=== PATIENT | female | born 1995 | race Two or more races ===

== ENCOUNTER 2016-11-24 13:50 | Emergency (ER) | payer OTHER ==
[~2016-11-24] VITALS: Ht 152.4 cm; Wt 51.7 kg
[2016-11-24] MEDS ORDERED: Bacitracin Oint UD TOPIC ONE (14:30)
[2016-11-24] MEDS ORDERED: Lidocaine 1% MPF 10mg/ml 5ml INJ ONE (14:30)
[2016-11-24] MEDS ORDERED: IBUPROFEN600 MG ORAL (15:17)
[2016-11-24] MEDS ORDERED: NITROFURANTOIN100 M2 ORAL (15:17)
[2016-11-24] MEDS ORDERED: CEPHALEXIN500 MG ORAL (15:18)
[2016-11-24 15:32] VITALS: BP 127/74
[2016-11-24 15:33] VITALS: BP 121/76
--- NOTE | 2016-11-24 16:16 | Emergency Room Report ---
History of Present Illness General Chief Complaint: Laceration Source: Patient Present Illness HPI The patient is a 21-year-old female presenting for laceration of the left thumb. She states that this began this afternoon while opening a metal can. She noticed immediate pain and bleeding. Pain is now a 3/10 sharp sensation to the left thumb and does not radiate. She denies any numbness or tingling. Pain worse with movement. Last tetanus shot 5 years prior. She denies any other symptoms Allergies: Coded Allergies: No Known Allergies (Unverified , 11/24/16) Patient History Past Medical History: see triage record Pertinent Family History: none Last Menstrual Period: 10/24/16 Now: No Reviewed Nursing Documentation: PMH: Agreed, PSxH: Agreed Nursing Documentation-PMH Past Medical History: No Stated History Review of Systems All Other Systems: negative except mentioned in HPI Physical Exam Vital Signs Date Time Temp Pulse Resp B/P (MAP) Pulse Ox O2 Delivery O2 Flow Rate FiO2 11/24/16 13:53 98.1 73 15 121/76 98 Room Air Sp02 EP Interpretation: reviewed, normal General Appearance: no apparent distress, alert, GCS 15, non-toxic Head: normocephalic, atraumatic Eyes: bilateral eye normal inspection, bilateral eye PERRL Musculoskeletal: back normal, gait/station normal, normal range of motion, tender - TTP over the L palmar surface of thumb over laceration site Neurologic: alert, oriented x3, responsive, motor strength/tone normal, sensory intact, speech normal Psychiatric: judgement/insight normal, memory normal, mood/affect normal, no suicidal/homicidal ideation Skin: normal color, no rash, normal turgor, laceration - 3cm linear laceration to L thumb distal to IPJ Lymphatic: no adenopathy Procedures Splinting Splinting : Consent: Verbal Location: L thumb Pre-Made Type: metal Splint: metal finger Pre-Proc Neuro Vasc Exam: normal Post-Proc Neuro Vasc Exam: normal Patient Tolerated: Well Complications: None Laceration/Wound Repair Laceration/Wound Repair : Consent: Verbal Wound Location: upper extremity Wound's Depth, Shape: superficial, linear Wound Length (cm): 3 Wound Explored: clean Irrigated w/ Saline (ccs): 100 Betadine Prep?: Yes Anesthesia: 1% Lidocaine Volume Anesthetic (ccs): 5 Wound Debrided: minimal Wound Repaired With: sutures Suture Size/Type: 4:0, nylon Number of Sutures: 5 Layer Closure?: No Sterile Dressing Applied?: Yes Splint Applied?: Yes Type of Splint Applied: metal finger Sling Applied?: No Patient Tolerated: Well Complications: None Medical Decision Making PA Attestation Dr. Espino is my supervising physician. Patient management was discussed with my supervising physician Diagnostic Impression: Primary Impression: Laceration of finger Qualified Codes: S61.012A - Laceration without foreign body of left thumb without damage to nail, initial encounter ER Course The patient is a 21-year-old female presenting for laceration of the left thumb. Ddx considered include but not limited to fracture, tendon/ligament injury, avulsion, nerve damage Physical exam reveals a 3 cm linear laceration to the left thumb palmar surface distal to IP joint. Full active range of motion. Sensation intact. Cap refill less than 2 seconds The wound was irrigated with normal saline and cleaned with betadine. A 27g needle was used to administer 5mL of lidocaine w.o epi for digital block. 5 sutures were placed with 4-0 nylon. The wound was well approximated and the patient tolerated the procedure well. The wound was then cleaned and bacitracin was applied. A metal finger splint was applied The patient will continue to keep the wound clean and dry and will followup with PMD. Suture instructions provided. ER precautions are given Last Vital Signs Date Time Temp Pulse Resp B/P (MAP) Pulse Ox O2 Delivery O2 Flow Rate FiO2 11/24/16 15:33 98.1 15 121/76 98 Room Air 11/24/16 15:32 84 Status: improved Disposition: HOME, SELF-CARE Condition: Improved Scripts Cephalexin* (KEFLEX*) 500 Mg Capsule 500 MG ORAL EVERY 12 HOURS, #14 CAP 0 Refills Prov: TERZIAN,GILDA P.A. 11/24/16 Ibuprofen* (MOTRIN*) 600 Mg Tablet 600 MG ORAL Q8H Y for For Pain, #30 TAB 0 Refills Prov: TERZIAN,GILDA P.A. 11/24/16 Patient Instructions: Laceration Care, Adult Additional Instructions: I discussed my findings with the patient. All questions and concerns have been answered. Treatment and medication compliance have been addressed. I advised the patient that they need to follow up with PMD in 7-10 days for wound check and suture removal. If you are unable to see PMD, return to the ED in 7-10 days. Return to ED if pain remains or worsens, you notice discharge from the wound, the wound continues to bleed, the suture/s fall out, you notice a fever or chills, or for any reason. Patient is advised to keep the wound clean and dry. Patient verbalized understanding of discharge instructions. GILDA TROTTER Nov 24, 2016 16:16
== END 2016-11-24 15:34 | disposition home or self-care (01) ==
LOC: EMR 14:27
DX: S61.012A Laceration without foreign body of left thumb without damage to nail, initial encounter (principal); W26.8XXA Contact with other sharp object(s), not elsewhere classified, initial encounter; Y93.9 Activity, unspecified; Y99.9 Unspecified external cause status
CPT/HCPCS: 12002; 29130; 99284; Z7502

== ENCOUNTER 2016-12-05 14:32 | Emergency (ER) | payer OTHER ==
[~2016-12-05] VITALS: Ht 152.4 cm; Wt 51.7 kg
[~2016-12-05 14:32] MED LIST: CEPHALEXIN500 MG ORAL; IBUPROFEN600 MG ORAL; NITROFURANTOIN100 M2 ORAL
[2016-12-05 14:35] VITALS: BP 103/66
[2016-12-05 15:00] VITALS: BP 103/66
--- NOTE | 2016-12-05 15:45 | Emergency Room Report ---
History of Present Illness General Chief Complaint: Wound Recheck/Suture Removal Source: Patient Present Illness HPI The patient is a 21-year-old female presenting for left thumb suture removal. She was seen in this emergency Department 10 days prior for a laceration of the left thumb. She denies any complications. She denies any pain, redness, discharge, bleeding from the area. She denies any other symptoms Allergies: Coded Allergies: No Known Allergies (Unverified , 11/24/16) Patient History Past Medical History: see triage record Pertinent Family History: none Reviewed Nursing Documentation: PMH: Agreed, PSxH: Agreed Nursing Documentation-PMH Past Medical History: No Stated History Review of Systems All Other Systems: negative except mentioned in HPI Physical Exam Vital Signs Date Time Temp Pulse Resp B/P (MAP) Pulse Ox O2 Delivery O2 Flow Rate FiO2 12/05/16 14:35 98.2 75 20 103/66 98 Room Air Sp02 EP Interpretation: reviewed, normal General Appearance: no apparent distress, alert, GCS 15, non-toxic Head: normocephalic, atraumatic Eyes: bilateral eye normal inspection, bilateral eye PERRL Musculoskeletal: back normal, gait/station normal, normal range of motion Neurologic: alert, oriented x3, responsive, motor strength/tone normal, sensory intact, speech normal Psychiatric: judgement/insight normal, memory normal, mood/affect normal, no suicidal/homicidal ideation Skin: wd healing/no infection noted, other - sutures in place L thumb Medical Decision Making PA Attestation Dr. Wade is my supervising physician. Patient management was discussed with my supervising physician Diagnostic Impression: Primary Impression: Encounter for removal of sutures Additional Impression: Encounter for wound re-check ER Course The patient is a 21-year-old female presenting for left thumb suture removal. Differential diagnosis considered: Wound infection, nonhealing wound, cellulitis , abscess PE: NAD Left thumb nylon sutures in place. Well approximated. No bleeding. No edema. Sensation intact. Full active range of motion Suture removal: all sutures were removed without complication. No bleeding or discharge. Wound is well approximated. No surrounding erythema. Last Vital Signs Date Time Temp Pulse Resp B/P (MAP) Pulse Ox O2 Delivery O2 Flow Rate FiO2 12/05/16 15:00 98.2 76 20 103/66 98 Room Air Status: improved Disposition: HOME, SELF-CARE Condition: Improved Referrals: [facility],REFERRING (PCP) Patient Instructions: Suture Removal, Care After Additional Instructions: I discussed my findings with the patient. All questions and concerns have been answered. Treatment and medication compliance have been addressed. I advised the patient that they need to follow up with PMD in 3-5 days. Return to ED if symptoms worsen, new symptoms arise, or if needed for any reason. Patient verbalized understanding of discharge instructions. GILDA TROTTER Dec 05, 2016 15:45
== END 2016-12-05 15:00 | disposition home or self-care (01) ==
LOC: EMR 14:42
DX: S61.012D Laceration without foreign body of left thumb without damage to nail, subsequent encounter (principal); W45.8XXD Other foreign body or object entering through skin, subsequent encounter; Z48.02 Encounter for removal of sutures
CPT/HCPCS: 99281

== ENCOUNTER 2019-06-16 13:43 | Emergency (ER) | payer OTHER ==
[~2019-06-16] VITALS: Ht 172.7 cm; Wt 53.1 kg
[2019-06-16 14:20] LABS: APPEARANCE,URINE SLIGHTLY CLOUDY; BILIRUBIN, URINE NEGATIVE (NEGATIVE); COLOR,URINE YELLOW; GLUCOSE, URINE (UA) NEGATIVE (NEGATIVE); KETONES,URINE NEGATIVE (NEGATIVE); LEUKOCYTE ESTERASE ,URINE 1+ (NEGATIVE); NITRITE,URINE NEGATIVE (NEGATIVE); PH,URINE 6 (4.5-8.0); PROTEIN,URINE 2+ (NEGATIVE); UROBILINOGEN,URINE 1 MG/DL (0.0-1.0)
[2019-06-16 14:22] LABS: BASOPHILS % (AUTO) 0.7 % (0.0-2.0); EOSINOPHILS % (AUTO) 1.3 % (0.0-3.0); HEMATOCRIT 38.7 % (37.0-47.0); HEMOGLOBIN 13.5 G/DL (12.0-16.0); LYMPHOCYTES % (AUTO) 22.4 % (20.0-45.0); MEAN CORPUSCULAR VOLUME 85 FL (80-99); MONOCYTES % (AUTO) 5.1 % (1.0-10.0); NEUTROPHILS % (AUTO) 70.5 % (45.0-75.0); PLATELET COUNT 303 K/UL (150-450); RED BLOOD COUNT 4.54 M/UL (4.20-5.40); RED CELL DISTRIBUTION WIDTH 11.3 % (11.6-14.8); WHITE BLOOD COUNT 6.6 K/UL (4.8-10.8)
--- NOTE | 2019-06-16 14:27 | NUR ---
ED Nurse Note: A/OX4. CAME TO ED DUE TO LOWER ABD PAIN WITH VAGINAL BLEEDING X2DAYS. REPORTS 7WKS PREGANT HER FIRST . BREATHING NORMAL/EVEN/UNLABORED. SKIN WARM/DRY/INTACT. NAD NOTED.
[2019-06-16 14:46] LABS: ANION GAP 10 mmol/L (5-15); BLOOD UREA NITROGEN 9 mg/dL (7-18); CALCIUM 9.5 MG/DL (8.5-10.1); CARBON DIOXIDE 29 MMOL/L (21-32); CHLORIDE 103 MMOL/L (98-107); CREATININE 0.7 MG/DL (0.55-1.30); POTASSIUM 3.5 MMOL/L (3.5-5.1); SODIUM 141 MMOL/L (136-145)
[2019-06-16 14:50] LABS: ALANINE AMINOTRANSFERASE 25 U/L (12-78); ALBUMIN 3.9 G/DL (3.4-5.0); ALBUMIN/GLOBULIN RATIO 1.1 (1.0-2.7); ALKALINE PHOSPHATASE 78 U/L (46-116); ASPARTATE AMINO TRANSFERASE 23 U/L (15-37); BILIRUBIN,TOTAL 0.5 MG/DL (0.2-1.0)
--- NOTE | 2019-06-16 16:18 | Diagnostic Imaging Report ---
Indication: Pelvic pain and vaginal bleeding, positive test Technique: Transabdominal and transvaginal images Comparison: none Findings: Uterus measures 5.5 cm length by 3.5 cm AP. Endometrium measures 4 mm thick. No intrauterine demonstrated. No myometrial abnormality. The right ovary measures 3.1 cm in length. The left ovary measures 3.4 cm in length. The left ovary contains what is probably a small hemorrhagic corpus luteum. The right ovary contains some echogenic foci which may represent small calcifications. Normal ovarian blood flow demonstrated. No free cul-de-sac fluid. Impression: No intrauterine demonstrated. Differential considerations include very early , spontaneous , ectopic . Recommend correlation with clinical findings and correlation with serial beta-hCGs. Consider follow-up sonography as indicated Probable small left ovarian hemorrhagic corpus luteum
--- NOTE | 2019-06-16 16:30 | Emergency Room Report ---
History of Present Illness General Chief Complaint: Complications Present Illness HPI 24-year-old female who is G1, P0 here reporting that she is 7 weeks and has been spotting for the past week. Reports that starting last night she started bleeding heavily. Complains of diffuse abdominal pain however no tenderness noted. Denies urinary frequency and urgency. Denies syncope, chest pain, shortness of breath, headache and dizziness. Reports that she last saw her CHEF INSTRUCTOR 2 weeks ago and everything was within normal limits. Has an upcoming appointment with her CHEF INSTRUCTOR in 3 days from now. Denies any heavy lifting or trauma. Denies tobacco smoke drug use. Has been taking vitamins. Denies URI symptoms, patient is afebrile. Allergies: Coded Allergies: No Known Allergies (Unverified , 11/24/16) COVID-19 Screening Contact w/high risk pt: No Recent Travel to affected area: No Experienced COVID-19 symptoms?: No Patient History Past Medical History: see triage record Past Surgical History: none Pertinent Family History: none Now: Yes Immunizations: UTD Reviewed Nursing Documentation: PMH: Agreed; PSxH: Agreed Nursing Documentation-PMH Past Medical History: No Stated History Review of Systems All Other Systems: negative except mentioned in HPI Physical Exam Vital Signs Date Time Temp Pulse Resp B/P (MAP) Pulse Ox O2 Delivery O2 Flow Rate FiO2 06/16/19 13:50 98.6 98 20 111/70 (84) 99 Room Air Sp02 EP Interpretation: reviewed, normal General Appearance: no apparent distress, alert, GCS 15, non-toxic Head: normocephalic, atraumatic Eyes: bilateral eye normal inspection, bilateral eye PERRL ENT: hearing grossly normal, normal pharynx, no angioedema, normal voice Neck: full range of motion, supple/symm/no masses Respiratory: chest non-tender, lungs clear, normal breath sounds, no rhonchi, no wheezing, speaking full sentences Cardiovascular #1: regular rate, rhythm, no edema, no murmur Gastrointestinal: normal bowel sounds, non tender, soft, non-distended, no guarding, no rebound Rectal: deferred Genitourinary: no CVA tenderness Musculoskeletal: back normal, no calf tenderness Neurologic: alert, motor strength/tone normal, oriented x3, sensory intact, responsive, speech normal Psychiatric: judgement/insight normal, memory normal, mood/affect normal, no suicidal/homicidal ideation Skin: no rash Lymphatic: no adenopathy Medical Decision Making PA Attestation All my diagnosis and treatment plans were reviewed ad discussed with my supervising physician Dr. Trammell Diagnostic Impression: Primary Impression: Vaginal bleeding during Additional Impression: UTI (urinary tract infection) during ER Course 24-year-old female who is G1, P0 here reporting that she is 7 weeks and has been spotting for the past week. Reports that starting last night she started bleeding heavily. Complains of diffuse abdominal pain however no tenderness noted. Denies urinary frequency and urgency. Denies syncope, chest pain, shortness of breath, headache and dizziness. Reports that she last saw her CHEF INSTRUCTOR 2 weeks ago and everything was within normal limits. Has an upcoming appointment with her CHEF INSTRUCTOR in 3 days from now. Denies any heavy lifting or trauma. Denies tobacco smoke drug use. Has been taking vitamins. Denies URI symptoms, patient is afebrile. Ddx considered but are not limited to: Ectopic , spontaneous , threatened , vaginal bleeding during , UTI urine Vital signs: are WNL, pt. is afebrile H&PE are most consistent with: Vaginal bleeding during , UTI during ORDERS: UA, urine cx, beta-hCG, CBC, CMP, type and screen, OB ultrasound, Tylenol, Keflex ED INTERVENTIONS: NS bolus DISCHARGE: At this time pt. is stable for d/c to home. Will provide printed patient care instructions, and any necessary prescriptions. Care plan and follow up instructions have been discussed with the patient prior to discharge. Patient to follow-up with CHEF INSTRUCTOR to determine whether the beta-hCG is coming, at this time no IUP is seen on ultrasound that can be secondary to lower number of weeks of or miscarriage. If worsening symptoms return to emergency room CT/MRI/US Diagnostic Results CT/MRI/US Diagnostic Results : Imaging Test Ordered: OB ultrasound Impression No IUP noted Last Vital Signs Date Time Temp Pulse Resp B/P (MAP) Pulse Ox O2 Delivery O2 Flow Rate FiO2 06/16/19 13:50 98.6 98 20 111/70 (84) 99 Room Air Disposition: HOME, SELF-CARE Condition: Stable Scripts Cephalexin* (KEFLEX*) 500 Mg Capsule 500 MG ORAL EVERY 12 HOURS for 7 Days, #14 CAP 0 Refills Prov: Shazia Magaña 06/16/19 Acetaminophen* (TYLENOL EXTRA STRENGTH*) 500 Mg Tablet 500 MG ORAL Q8H PRN for Prn Headache/Temp > 101, #30 TAB 0 Refills Prov: Shazia Magaña 06/16/19 Referrals: [facility],REFERRING (PCP) Patient Instructions: Urinary Tract Infection, [id number], Vaginal Bleeding During , First Trimester Additional Instructions: Take medication as directed, follow-up primary care doctor, you need to be seen by your CHEF INSTRUCTOR in 48 hours. Reports emergency room Shazia Magaña Jun 16, 2019 16:30
[2019-06-16] MEDS ORDERED: TYLENOL EXTRA500 MG ORAL (16:31)
[2019-06-16] MEDS ORDERED: CEPHALEXIN500 MG ORAL (16:31)
[2019-06-16 16:38] VITALS: BP_SYST 104; BP_DIAS 68; BP_DIAS 69
--- NOTE | 2019-06-16 16:39 | NUR ---
ED Nurse Note: Pt cleared by health care Provider for discharge. DC instructions/prescription was given and explained to pt and verbalized understanding of teachings. All medical deviecs such as ID band removed. Pt is AAO x4, ambulatory and left with all personal belongings.
== END 2019-06-16 16:39 | disposition home or self-care (01) ==
LOC: EMR 14:06
DX: O26.851 Spotting complicating pregnancy, first trimester (principal); O23.41 Unspecified infection of urinary tract in pregnancy, first trimester; Z3A.01 Less than 8 weeks gestation of pregnancy
CPT/HCPCS: 36415; 76801; 76817; 80053; 81003; 84702; 85025; 86850; 86900; 86901; 87086; 96360; J7030; Z7502; 99284